=== PATIENT | female | born 1935 | race Caucasian/White ===

== ENCOUNTER → 2016-08-21 | Outpatient (CLI) | payer MEDICARE, BC ==
[~2016-08-21] MED LIST: ALDACTONE25 MG PO; ASPIR 8181 MG PO; BACTRIM DS1 TAB PO; CERTAVITE SR-A1 EACH PO; CORDARONE,PACE200 MG PO; COZAAR50 MG PO; DITROPAN5 MG PO; DULCOLAX10 MG R; FLORASTOR250 MG PO; KLOR-CON 1010 MEQ PO; LASIX40 MG PO; LEVAQUIN 250 M250 MG PO; LEVOTHROID (SY25 MCG PO; LOPRESSOR25 MG PO; MILK OF MA400 MG/5 M PO; MIRALAX17 GM PO; MIRAPEX0.25 MG PO; OXYGEN M-15 INH; PERCOCET 5-3251 EACH PO; PROPAFENONE HC225 MG PO; PROTONIX40 MG PO; TYLENOL325 MG PO; VITAMIN D350000 UNIT PO; XARELTO15 MG PO; ZOLOFT25 MG PO; ZYLOPRIM300 MG PO; ZYRTEC10 MG PO
== END | disposition disaster alternative care site (69) ==
LOC: GAMB 10:36
DX: R41.82 Altered mental status, unspecified (principal); I63.9 Cerebral infarction, unspecified; E03.9 Hypothyroidism, unspecified; I10 Essential (primary) hypertension; R11.0 Nausea; R32 Unspecified urinary incontinence; R53.1 Weakness; Z95.0 Presence of cardiac pacemaker
CPT/HCPCS: A0422; A0425; A0427; J2405

== ENCOUNTER → 2016-10-26 | Outpatient (CLI) | payer MEDICARE, BC ==
--- NOTE | ~2016-10-26 | ENPV ---
Vascular Lower Extremities DVT Study Procedure Demographics Patient Name PALOMO BAUMANN Date of Study 10/26/2016 Patient Number [id number] Gender Female Date of 1935 Age 81 Visit Number [id number] Height Accession Number [id number] Weight Room Number BSA BMI Referring Niya Seaman MD Interpreting John Barrera MD Physician Ya Monroe MD Physician Physician Ordering Physician Niya Seaman MD Foot Tender Back Stayer Karan Tapia [facility] Conclusions Summary No evidence of deep vein thrombosis in the right lower extremity. Procedure Type of Study: Veins:Lower Extremities DVT Study, Lower Extremity Right. Indications for Study:Unilateral pain and edema. Additional Indications:Right lower extremity edema Appropriate Use Criteria:9 Patient Status:Routine. Study Location:Vascular Lab. Technical Quality:Adequate visualization. - Preliminary reported to:'s nurse Nuris. Velocities are measured in cm/s ; Diameters are measured in cm Right Lower Extremities DVT Study Measurements Right 2D and Doppler Measurements + + + + +------+------+ + !Location !Visualized!Compressibility!Thrombosis!Signal!Reflux!Reflux ! ! ! ! ! ! ! !(sec) ! + + + + +------+------+ + !GSV Thigh !Yes !Yes !None !Phasic!No ! ! + + + + +------+------+ + !Common !Yes !Yes !None !Phasic!No ! ! !Femoral ! ! ! ! ! ! ! + + + + +------+------+ + !Prox !Yes !Yes !None !Phasic!No ! ! !Femoral ! ! ! ! ! ! ! + + + + +------+------+ + !Mid Femoral!Yes !Yes !None !Phasic!No ! ! + + + + +------+------+ + !Dist !Yes !Yes !None !Phasic!No ! ! !Femoral ! ! ! ! ! ! ! + + + + +------+------+ + !Popliteal !Yes !Yes !None !Phasic!No ! ! + + + + +------+------+ + !Gastroc !Yes !Yes !None ! ! ! ! + + + + +------+------+ + !PTV !Yes !Yes !None ! ! ! ! + + + + +------+------+ + !Peroneal !Yes !Yes !None ! ! ! ! + + + + +------+------+ + Left Lower Extremities DVT Study Measurements Left 2D and Doppler Measurements + + + + +------+------+ + !Location !Visualized!Compressibility!Thrombosis!Signal!Reflux!Reflux ! ! ! ! ! ! ! !(sec) ! + + + + +------+------+ + !Common !Yes !Yes !None !Phasic!Yes ! ! !Femoral ! ! ! ! ! ! ! + + + + +------+------+ + Signature dtt: MARY REYES dtlizzie: 10/26/16 1540 Physician Self Edit
== END ==
LOC: GCAR 15:00
DX: M79.89 Other specified soft tissue disorders (principal)

== ENCOUNTER → 2016-10-26 | Outpatient (CLI) | payer MEDICARE, BC | END | disposition disaster alternative care site (69) | LOC: LCNC 14:52 | DX: E03.9 Hypothyroidism, unspecified (principal) ==

== ENCOUNTER 2016-10-28 06:12 | Observation (INO) | payer MEDICARE, BC ==
[~2016-10-28] VITALS: Ht 152.4 cm; Wt 64.7 kg
--- NOTE | ~2016-10-28 | OR ---
PATIENT'S NAME: PALOMO BAUMANN [facility] AGE: 81 Y [address] ROOM: [place] [id number] LOCATION: [facility] ADMIT DATE: 10/28/2016 OR/Procedure Report DISCHARGE DATE: 10/29/2016 FAMILY PHYSICIAN: SIN CLEVELAND MD ATTENDING PHYSICIAN: BERNADETTE STONE SURGEON: Bernadette Stone MD BINDERY WORKER: None. 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 PROCEDURES PERFORMED: 1. Removal of deep buried hardware from medial aspect of foot and lateral aspect of foot. 2. Osteoplasty of medial longitudinal arch that included the talar head and navicular and medial cuneiform tarsal bones using a sagittal saw. 3. Irrigation and debridement of stage IV pressure ulcer at medial longitudinal arch. Debridement included skin, subcutaneous tissue, muscle, and fascia down to bone and exposed orthopedic hardware. Pressure sore measuring 5 cm x 5 cm x 4 cm in depth. 4. Use of intraoperative fluoroscopy, less than one hour. ANESTHESIA: Ankle block. FLUIDS: See anesthesia report. ESTIMATED BLOOD LOSS: Minimal. TOURNIQUET: Right ankle at 250 mmHg. SPECIMENS: Removed hardware from hindfoot and midfoot. COMPLICATIONS: None. DISPOSITION: Stable, in PACU. COUNTS: All counts were correct. INDICATIONS: Mrs. Baumann is a pleasant, 81-year-old female who underwent PATIENT'S NAME: PALOMO BAUMANN [facility] AGE: 81 Y [address] ROOM: [address] [address] LOCATION: [facility] ADMIT DATE: 10/28/2016 OR/Procedure Report DISCHARGE DATE: 10/29/2016 FAMILY PHYSICIAN: SIN CLEVELAND MD ATTENDING PHYSICIAN: BERNADETTE STONE the noted procedures above. The risks, benefits, and alternatives to pursuing surgical intervention were discussed with the patient in detail. I marked the patient's right lower extremity, indicating the correct surgical site. Anesthesia was consulted for their perioperative evaluation of the patient. OPERATIVE REPORT IN DETAIL: The patient was brought from the holding area to the operating room. A time-out was performed. Anesthesia was administered. An ankle block had been placed. The right lower extremity was then prepped and draped in the sterile fashion. I turned my attention to the medial aspect of the foot. There was a full- thickness stage IV ulcer communicating with bone and hardware. I made a surgical incision with a 15 blade knife where a previous incision was made for a medial approach to the foot. The incision was carried through skin and subcutaneous tissue down to the buried hardware. I subsequently removed the hardware. I then turned my attention to the ulcer and debrided this full- thickness ulcer using a 15 blade knife, rongeur, and curettes. The wound was then copiously irrigated with a normal sterile saline solution. I used an oscillating saw to perform an osteotomy of the plantar portion of the talar head, navicular bone, and medial cuneiform where the arch had subsequently collapsed leading to the bone and hardware creating the pressure sore at the medial aspect of the foot. The wound was then closed in layers. I then turned my attention to the lateral aspect of the hindfoot. Using previously made surgical incision to address the calcaneocuboid joint, the incision was carried through skin, subcutaneous tissue, muscle, and fascia, down to bone and hardware. I removed the hardware. A piece of the hardware was broken. The wound was then copiously irrigated with a normal sterile saline solution and closed in layers. I introduced intraoperative fluoroscopy and identified that I successfully removed the hardware and had performed a successful osteoplasty of the medial longitudinal arch. Sterile dressing was placed in the form of Xeroform, 4x4, Webril, and Tez bandage. The tourniquet was let down. The patient was then transferred from the operating room table onto the stretcher and brought to the recovery room in stable condition. There were no intraoperative complications noted. IMPRESSION: The patient is status post the noted procedures above. PATIENT'S NAME: PALOMO BAUMANN [facility] AGE: 81 Y [address] ROOM: [place] [address] LOCATION: [facility] ADMIT DATE: 10/28/2016 OR/Procedure Report DISCHARGE DATE: 10/29/2016 FAMILY PHYSICIAN: SIN CLEVELAND MD ATTENDING PHYSICIAN: BERNADETTE STONE PLAN: The patient will be nonweightbearing on the right lower extremity in a soft dressing. She will be encouraged to rest, ice, and elevate it. She is at high risk for bleeding complications seeing that she is currently chronically anticoagulated on Xarelto. She will be discharged home from the PACU provided she meets PACU discharge criteria. She will follow up in my office in 2 weeks for her first postoperative visit. I will continue to monitor closely in the postoperative period. MD KRISTINE ONTIVEROSD/modl /[id number] Corrected work type 11/01/16 AO d: 10/28/16 1455 t: 11/03/16 1258, OPERATIVE SUMMARY
[~2016-10-28 06:12] MED LIST changes: -BACTRIM DS1 TAB PO; -DULCOLAX10 MG R; -FLORASTOR250 MG PO; -LEVAQUIN 250 M250 MG PO; -PERCOCET 5-3251 EACH PO
[2016-10-28 06:54] LABS: BASOPHIL # 0.1 K/uL (0.0-0.2); BASOPHIL % 0.9 %; EOSINOPHIL # 0.1 K/uL (0.0-0.5); EOSINOPHIL % 2.5 %; HEMATOCRIT 35.3 % (30.0-46.0); HEMOGLOBIN 11.4 g/dL (10.0-15.0); IMMATURE GRANULOCYTE % 0.4 %; LYMPHOCYTE # 0.8 K/uL (0.8-4.0); MCH 32.2 pg (27.0-34.0); MCHC 32.3 gm/dL (32.0-36.5); MCV 99.7 fl (83.0-98.0); MONOCYTE # 0.4 K/uL (0.0-1.0); MONOCYTE % 7.7 %; MPV 10.4 fl (9.4-12.4); NEUTROPHIL # (ANC) 4.1 K/uL (1.8-7.8); NEUTROPHIL % 73.5 %; NRBC % 0 /100WBC (0-0.00); PLATELET COUNT 246 K/uL (150-450); RBC 3.54 M/uL (3.00-5.00); RDW-CV 13.9 % (11.9-14.6); WBC 5.6 K/uL (4.0-11.0)
[2016-10-28] MEDS ORDERED: PERCOCET 5-3251 EACH PO (09:54)
[2016-10-28] MEDS ORDERED: BACTRIM DS1 TAB PO (09:55)
[2016-10-28 12:34] LABS: BASOPHIL % 0.6 %; EOSINOPHIL # 0.1 K/uL (0.0-0.5); EOSINOPHIL % 1.9 %; HEMATOCRIT 34.1 % (30.0-46.0); HEMOGLOBIN 10.9 g/dL (10.0-15.0); IMMATURE GRANULOCYTE % 0.4 %; LYMPHOCYTE # 0.7 K/uL (0.8-4.0); LYMPHOCYTE % 15.6 %; MCH 32.5 pg (27.0-34.0); MCV 101.8 fl (83.0-98.0); MONOCYTE # 0.4 K/uL (0.0-1.0); MONOCYTE % 9.1 %; MPV 10.6 fl (9.4-12.4); NEUTROPHIL # (ANC) 3.4 K/uL (1.8-7.8); NEUTROPHIL % 72.4 %; NRBC % 0 /100WBC (0-0.00); PLATELET COUNT 227 K/uL (150-450); RBC 3.35 M/uL (3.00-5.00); RDW-CV 14.1 % (11.9-14.6); WBC 4.6 K/uL (4.0-11.0)
[2016-10-28 12:47] LABS: ANION GAP 8.4 (10.0-19.0); CALCIUM 8.1 mg/dL (8.5-10.5); CREATININE 1.3 mg/dL (0.5-1.1); POTASSIUM 3.4 mMol/L (3.7-5.1)
[2016-10-28 16:54] LABS: HEMATOCRIT 34.5 % (30.0-46.0)
[2016-10-28 17:06] LABS: ANION GAP 9.9 (10.0-19.0); CALCIUM 8.1 mg/dL (8.5-10.5); CREATININE 1.3 mg/dL (0.5-1.1); POTASSIUM 3.9 mMol/L (3.7-5.1)
--- NOTE | 2016-10-28 17:28 | NUR ---
Significant Event: From outpatient recovery at 1145. Hypotensive upon arrival, Fluid bolus given. IV infusing at 125mL/hr to L) hand. Dressing to R) foot C/D/I. Monitor for increased bleeding as patient was not off Xarelto prior to OR. NWB to R) foot. Able to wiggle toes, denies numbness/tingling. Percocet 1 tab at 1537. Follow up:
[2016-10-28 21:01] LABS: HEMATOCRIT 33.7 % (30.0-46.0); HEMOGLOBIN 10.8 g/dL (10.0-15.0)
--- NOTE | 2016-10-29 04:44 | NUR ---
Significant Event: Alert/oriented x3. Came from Outpatient Recovery yesterday at 1145, pt had not stopped her Xarelto when she was supposed to. H & H yesterday at 1650 was 11.0/34.5, at 2000 was 10.8/33.7 - called results into Dr Romo - ordered another H & H for this morning. VSS. CSM - Neurovascular checks Q2H x 24 hrs - can wiggle toes, sensation present, skin warm. Check operative site Q1H for possible bleeding - dressing C/D/I throughout shift. Order for 3 LPM O2 while sleeping. 1 void using bedside commode - 350 mls yellow urine. NWB right lower extremity. Ice bag applied. Foot pump on left foot. Pain tolerable, has not wanted any pain meds. Follow up:
--- NOTE | 2016-10-29 05:03 | NUR ---
Hematest stools order. Pt has hx C diff.
[2016-10-29 05:59] LABS: BASOPHIL % 0.5 %; EOSINOPHIL # 0.1 K/uL (0.0-0.5); EOSINOPHIL % 0.9 %; HEMATOCRIT 31.3 % (30.0-46.0); HEMOGLOBIN 9.9 g/dL (10.0-15.0); IMMATURE GRANULOCYTE % 0.3 %; LYMPHOCYTE # 0.8 K/uL (0.8-4.0); MCH 32.1 pg (27.0-34.0); MCHC 31.6 gm/dL (32.0-36.5); MCV 101.6 fl (83.0-98.0); MONOCYTE # 0.5 K/uL (0.0-1.0); MONOCYTE % 7.3 %; MPV 10.7 fl (9.4-12.4); NRBC % 0 /100WBC (0-0.00); PLATELET COUNT 240 K/uL (150-450); RBC 3.08 M/uL (3.00-5.00); RDW-CV 14.1 % (11.9-14.6); WBC 6.3 K/uL (4.0-11.0)
[2016-10-29 06:13] LABS: ANION GAP 8.8 (10.0-19.0); CALCIUM 8.4 mg/dL (8.5-10.5); CREATININE 1.1 mg/dL (0.5-1.1); POTASSIUM 4.8 mMol/L (3.7-5.1)
--- NOTE | 2016-10-29 10:30 | NUR ---
Introduced self/role to patient, her significant other Julio and daughter Елена #[phone]. Explained their hospital status and that Medicare would not pay for SNF care. Goal is back to [facility] if possible otherwise anywhere but [place]. 1040 Spoke to Smitha at [facility] #[phone]. They can provide extra care for patient ontop of [facility]. Faxed referral to [facility]. 1100 Spoke to [facility]ry [facility] about discharge plans. 1110 Spoke with Olga Lidia at [facility]. 1150 Followed up with Елена, she asked me to call [facility] for pricing on wheelchair and commode. Also to talk to therapies about how she is doing. 1155 Left a message for therapies to call me. [facility] - wheelchair is $60 a month and commode to purchase is $80. 1240 Spoke to Kimberly in PT. Not idea to go to [facility] but will have same barriers at SNF - having to wait for assistance to bathroom and her forgetting she is NWB. Okay with [facility] with the added services we are putting in place. 1245 Left a message for daughter - private care providers list in mom's room, can she transport, cost of items at [facility] and what therapies thought. 1310 Confirmed with Olga Lidia they were good to accept - [facility]. Yes. 1625 Followed up with patient, SO, daughter. Okay for going home today. Called Garry Cobian to proceed. Nursing will fax orders, meds and face to face to [facility] - numbers on the chart.
[2016-10-29] MEDS ORDERED: FLORASTOR250 MG PO (15:08)
--- NOTE | 2016-10-29 15:08 | NUR ---
Significant Event: Pt Aox3, confused at times. IV dc'd. Dressing C/D/I. NWB R) LE. Voiding without difficulty. No BM today, last BM 10/28/16. Pain controlled with Percocet x 1, will give Tylenol prior to transfer. Up with one assist, walker and gait belt. Taking PO fair. Uses IS as instructed with encouragement. Last BM was yesterday. Encouraged daughter to get a standard walker versus her wheeled walker. Plans to return to [facility] per daughter and . Follow up:
[2016-10-29] MEDS ORDERED: PERCOCET 5-3251 EACH PO (15:10)
[2016-10-29] MEDS ORDERED: BACTRIM DS1 TAB PO (15:11)
== END 2016-10-29 17:38 | disposition home health service (06) ==
LOC: G3N 06:12 → GSDC 06:12 → G3N 06:13 → GSDC 06:13 → GPOC 17:00 → G3N 10-29 17:38
PROVIDERS: Internal Medicine; ADMIT Orthopaedic Surgery Adult Reconstructive Orthopaedic Surgery
PROC: 0YP90YZ Removal of Other Device from Right Lower Extremity, Open Approach (ICD-10-PCS; principal; 2016-10-28)
PROC: 0QBL0ZZ Excision of Right Tarsal, Open Approach (ICD-10-PCS; 2016-10-28)
PROC: 0QBL0ZZ Excision of Right Tarsal, Open Approach (ICD-10-PCS; 2016-10-28)
DX: T84.59XA Infection and inflammatory reaction due to other internal joint prosthesis, initial encounter (principal); L89.894 Pressure ulcer of other site, stage 4; L03.115 Cellulitis of right lower limb; M19.071 Primary osteoarthritis, right ankle and foot; I48.91 Unspecified atrial fibrillation; I27.81 Cor pulmonale (chronic); F32.9 Major depressive disorder, single episode, unspecified; I42.0 Dilated cardiomyopathy; K21.9 Gastro-esophageal reflux disease without esophagitis; E03.9 Hypothyroidism, unspecified; G47.33 Obstructive sleep apnea (adult) (pediatric); M81.0 Age-related osteoporosis without current pathological fracture; I25.10 Atherosclerotic heart disease of native coronary artery without angina pectoris; E78.5 Hyperlipidemia, unspecified; I13.0 Hypertensive heart and chronic kidney disease with heart failure and stage 1 through stage 4 chronic kidney disease, or unspecified chronic kidney disease; N18.3 Chronic kidney disease, stage 3 (moderate); I50.9 Heart failure, unspecified; I25.2 Old myocardial infarction; Z90.710 Acquired absence of both cervix and uterus; Z98.890 Other specified postprocedural states; Z79.899 Other long term (current) drug therapy; Z88.8 Allergy status to other drugs, medicaments and biological substances
CPT/HCPCS: G0378; G8978; G8979; G8980; G8984; G8985; G8986; J0690; J2001; J3480; J7030; J7042; J7050

== ENCOUNTER → 2016-11-05 | Outpatient (CLI) | payer MEDICARE, BC ==
[~2016-11-05] MED LIST changes: +BACTRIM DS1 TAB PO; +DULCOLAX10 MG R; +FLORASTOR250 MG PO; +LEVAQUIN 250 M250 MG PO; +PERCOCET 5-3251 EACH PO
== END | disposition disaster alternative care site (69) ==
LOC: GAMB 20:16
DX: M25.0 Hemarthrosis (principal); I10 Essential (primary) hypertension; E03.9 Hypothyroidism, unspecified; Z95.0 Presence of cardiac pacemaker; Z79.899 Other long term (current) drug therapy
CPT/HCPCS: A0425; A0429

== ENCOUNTER → 2016-11-20 | Outpatient (CLI) | payer MEDICARE, BC | END | disposition disaster alternative care site (69) | LOC: GAMB 21:06 | DX: L76.22 Postprocedural hemorrhage of skin and subcutaneous tissue following other procedure (principal); I10 Essential (primary) hypertension; E03.9 Hypothyroidism, unspecified; Z79.899 Other long term (current) drug therapy | CPT/HCPCS: A0425; A0429 ==

== ENCOUNTER 2016-11-21 03:42 | Inpatient (IN) | payer MEDICARE, BC ==
[~2016-11-21] VITALS: Ht 152.4 cm; Wt 62.1 kg
--- NOTE | ~2016-11-21 | ER ---
PATIENT'S NAME: PALOMO BAUMANN [facility] AGE: 81 Y [address] ROOM: [place] [address] LOCATION: [facility] ADMIT DATE: 11/21/2016 ER/Outpatient Report DISCHARGE DATE: FAMILY PHYSICIAN: SIN CLEVELAND MD ATTENDING PHYSICIAN: Wilmer Romo Time of Arrival: 0342. Time of Evaluation: 347. CHIEF COMPLAINT: Right foot wound. HISTORY OF PRESENT ILLNESS: The patient is an 81-year-old female who presents to the emergency department today with chief complaint of a right foot wound. She has been seen at [facility] Emergency Department tonight, was sent over here for further evaluation, treatment, and management. The patient underwent surgery by Dr. Salas. Apparently, the wound had opened up and was draining. They were transferred over here for Dr. Salas's evaluation. The patient herself denies any nausea or vomiting. No fevers or chills. No diarrhea or constipation. Denies any chest pain. No shortness of breath. PAST MEDICAL HISTORY: Sick sinus syndrome, gastroesophageal reflux disease, gout, atrial fibrillation, chronic kidney disease, hypertension, hypothyroid, restless legs syndrome, depression. PAST SURGICAL HISTORY: Pacemaker, right foot surgery, back surgery, cardiac cath, ablation, tonsillectomy, hysterectomy. SOCIAL HISTORY: The patient denies any tobacco, alcohol, or illicit drug use. ALLERGIES: BACTRIM, HEPARIN, RED DYE, SYNTHROID. MEDICATIONS: Please see list. PRIMARY CARE DOCTOR: Dr. [place]. ORTHOPEDIC SURGEON: Dr. Salas. PATIENT'S NAME: PALOMO BAUMANN [facility] AGE: 81 Y [address] ROOM: [place] [address] LOCATION: [facility] ADMIT DATE: 11/21/2016 ER/Outpatient Report DISCHARGE DATE: FAMILY PHYSICIAN: SIN CLEVELAND MD ATTENDING PHYSICIAN: Wilmer Romo REVIEW OF SYSTEMS: All systems are reviewed by myself and negative with the exception of those discussed in HPI and past medical history. PHYSICAL EXAMINATION: VITAL SIGNS: Weight 61.5 kg. Blood pressure 115/59, pulse 60, respiratory rate 16, temperature 97, oxygen saturation 94% on room air. GENERAL: The patient is an 81-year-old female, who appears stated age, in no acute distress. HEENT: Normocephalic, atraumatic. NECK: Supple. There is no nuchal rigidity. CARDIOVASCULAR: Regular rate and rhythm. LUNGS: Clear to auscultation bilaterally. ABDOMEN: Soft, nontender, nondistended. MUSCULOSKELETAL: The patient moves all 4 extremities. SKIN: The patient has a bandage over her right wound. There is no obvious drainage noted. There is no red streaking. LABS AND X-RAYS: ESR is 54. CRP is 1.45. A gram stain and wound culture from 11/14 are obtained. It does show Staph aureus as well as Pseudomonas aeruginosa. IMPRESSION: 1. Wound dehiscence. 2. Initial visit. EMERGENCY DEPARTMENT COURSE: The patient brought back to the examination room. Seen and evaluated by myself. Dr. Salas has seen and evaluated the patient here in the emergency department. We will admit the patient in conjunction with the hospitalist Service. Please see Dr. Salas's dictation. DISPOSITION: The patient is admitted under the care of the Hospitalist Service in stable condition. DO MIR VALLE/real PATIENT'S NAME: PALOMO BAUMANN [facility] AGE: 81 Y [address] ROOM: [place] [address] LOCATION: [facility] ADMIT DATE: 11/21/2016 ER/Outpatient Report DISCHARGE DATE: FAMILY PHYSICIAN: SIN CLEVELAND MD ATTENDING PHYSICIAN: Wilmer Romo /[id number] d: 11/22/16 0049 t: 11/22/161902, OUTPATIENT REPORT
--- NOTE | ~2016-11-21 | DS ---
PATIENT'S NAME: [facility] AGE: 81 Y [address] ROOM: [place] [address] LOCATION: [facility] ADMIT DATE: 11/21/2016 Discharge Summary DISCHARGE DATE: 11/29/2016 FAMILY PHYSICIAN: Fer Pandya MD ATTENDING PHYSICIAN: Wilmer Romo DISCHARGE DIAGNOSES: 1. Delirium. 2. Hypothyroidism. 3. Paroxysmal atrial fibrillation and sinus syndrome, status post pacer. 4. Cor pulmonale, chronic. 5. Chronic kidney disease, stage 3. 6. Anemia of chronic disease. 7. Obstructive sleep apnea. 8. Gastroesophageal reflux disease. REASON FOR ADMISSION: Delirium. She actually was in part admitted because of a wound dehiscence, status post orthopedic procedure. Dr. Salas consulted and noted a right foot wound with a polymicrobial infection, staph aureus and Pseudomonas, suspicious for osteomyelitis. LABORATORY: Initial white count was 6.8, dropped to 3.9. Initial hemoglobin 10.9, she left at 9.3. Pre-albumin was low. CRP was elevated. Initial electrolytes showed sodium 140 and potassium 3.1. These corrected to 143 and 3.7. Vitamin D levels were low. RADIOLOGY: Chest x-ray showed no vascular congestion or acute infiltrate, did have cardiac enlargement with the pacemaker in place. HOSPITAL COURSE: Since that was one of gradual improvement, she was transferred to [facility] for followup care with Dr. Pandya and Dr. Salas. MEDICATIONS: Per med recon. ACTIVITY: Would be per PT and Orthopedics. DIET: To be regular. FOLLOWUP: With Dr. Salas in 2 weeks. PATIENT'S NAME: [facility] AGE: 81 Y [address] ROOM: [place] [address] LOCATION: [facility] ADMIT DATE: 11/21/2016 Discharge Summary DISCHARGE DATE: 11/29/2016 FAMILY PHYSICIAN: Fer Pandya MD ATTENDING PHYSICIAN: Wilmer Romo MD CCJ/modl /[id number] d: 12/17/16 0221 t: 12/18/16 1726, DISCHARGE SUMMARY
--- NOTE | ~2016-11-21 | CON ---
PATIENT'S NAME: PALOMO BAUMANN [facility] AGE: 81 Y [address] ROOM: [id number] [place], [place] [address] LOCATION: G3N ADMIT DATE: 11/21/2016 Consultation DISCHARGE DATE: FAMILY PHYSICIAN: SIN CLEVELAND MD ATTENDING PHYSICIAN: Wilmer Romo REFERRING PHYSICIAN: BERNADETTE STONE MD HISTORY OF PRESENT ILLNESS: Ms. Baumann is an 81-year-old female, who is under the care of my partner, (Dr. 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 She underwent a failed hindfoot arthrodesis (surgery performed last year). She underwent partial hardware removal with Dr. Stone last month. She experienced a partial wound dehiscence earlier this month, and Dr. Stone closed the wound dehiscence on November 05. She was subsequently discharged home with strict instructions to avoid weightbearing. The patient's home health nurse called me one week ago with concerns regarding erythema and increased swelling at the hind foot. I was informed that the ipsilateral knee was asymptomatic, but concern was raised regarding potential proximally migrating erythema and swelling. I made arrangements (through the home health nurse) to have the patient to come to [facility] to be evaluated promptly (due to the fact that it was the weekend). I subsequently received a call (later that same morning) through the answering service. The answering service informed me that the patient's daughter wanted to take her to [facility] instead of [facility] due to the fact that the patient's daughter works at [facility]. I emphasized that this was not appropriate and that the patient needed to be brought to the [facility] due to the fact that Dr. Stone did not have privileges at [facility] and that the patient needed to be under the care of Dr. Stone. The patient's daughter had the patient brought to the [facility] Emergency Room despite these instructions to the contrary. I informed Dr. Stone, that I was concerned that the patient had not followed my instructions, and he informed me that he would ensure further instructions to follow up with him promptly. I am director of instructional technology for our group once again this weekend, and I received a call from the [facility] in early hours this morning, informed me that the patient had been seen there on 2 separate occasions in the last 12 hours with active hemorrhage from her foot. I learned this evening that the patient had been admitted to [facility] 1 week ago (when she presented there, instead of coming here as instructed). She was not evaluated by an orthopedic surgeon. She was admitted to the Hospitalist Service at [facility]. Cultures of her wound grew Pseudomonas and Staphylococcus aureus. She was PATIENT'S NAME: PALOMO BAUMANN [facility] AGE: 81 Y [address] ROOM: [address] [address] LOCATION: [facility] ADMIT DATE: 11/21/2016 Consultation DISCHARGE DATE: FAMILY PHYSICIAN: SIN CLEVELAND MD ATTENDING PHYSICIAN: Wilmer Romo treated with intravenous antibiotics and discharged to [facility] to ensure compliance with weightbearing restrictions. She states that she was aware that she was to be a "strict 2 person assist" for transfers. I have been informed this evening that [facility] was the only intermediate they would accept due to her history of C. difficile colitis. She was transferred from [facility] to [facility] on (4 days ago). She has had a low-grade fever over the past few days. She denies chills. She states that she has been experiencing minimal discomfort and no trend of increased discomfort over the past several days. She states that there has been daily drainage from her right foot wound over the past several days. She states that this has been "not just a little, there was a lot." Based upon her description, there was approximately a 5 centimeter diameter sanguinous stain on her dressing, each of the past several days at [facility]. The patient states that she put weight on her foot while changing her clothes, preparing for bed at 9:00 p.m. at [facility] this evening. She states that her nurse informed her that "it was okay to put a little weight on it." The patient states that she was transferred to [facility] to ensure compliance with the weightbearing restrictions that had been recommended. She states that she has been on oral antibiotics since being transferred to [facility] from [facility]. She states that she was aware that she was not supposed to bear weight, but she did so anyway. A sudden "gush" of "blood" was noted when she put weight on the foot, and she was sent to the [facility] ER by ambulance. The patient states that she is uncertain why [facility] had her go to [facility] this evening. I had the emergency room staff call [facility], and [facility] informed the [facility] staff that the patient had insisted on going only to [facility]. The [facility] Emergency Room physician saw her on 2 occasions this evening. He called me after she returned a second time. He informs me that he noted a wound dehiscence when she presented the first time. He states that there was "bloody drainage." He sutured the wound closed and sent the patient back to [facility]. The patient and her family members state that the wound started to actively bleed before getting out of the car upon her return to [facility]. They, therefore, returned to the [facility] Emergency Room with the emergency room physician placing an additional suture. The patient states, "one of the stitches had popped." The emergency room physician at [facility] called me through my answering service after the patient presented a second time. I expressed my concern regarding the patient and her family members having failed to comply with my recommendation to come to this facility one week ago. I encouraged the emergency room physician to transfer her here (so that she PATIENT'S NAME: PALOMO BAUMANN [facility] AGE: 81 Y [address] ROOM: [id number] [place] [id number] LOCATION: [facility] ADMIT DATE: 11/21/2016 Consultation DISCHARGE DATE: FAMILY PHYSICIAN: SIN CLEVELAND MD ATTENDING PHYSICIAN: Wilmer Romo could have appropriate follow up with Dr. Stone). The patient and her family members were amenable to this. I asked that he check with them (before transferring her) to be certain that they were comfortable with us, due to my concern that there might have been some underlying reason why they elected to go to another facility on 3 separate occasions during the past week despite the fact that they were aware that the patient's primary care physician (Dr. Cleveland) and the patient's surgeon (Dr. Stone) did not have privileges at [facility]. The emergency room physician reassured me that the patient and her family members did not object to transferring her here before transferring her. The patient states that she is having minimal discomfort. MEDICATIONS: Present medications: 1. Ultram. 2. Tylenol. 3. Allopurinol. 4. Cetirizine. 5. Dulcolax. 6. Furosemide. 7. Lactobacillus. 8. Levaquin. 9. Losartan. 10. Metoprolol. 11. Milk of magnesia. 12. Oxybutynin ER. 13. Pantoprazole. 14. Xarelto. 15. Synthroid. 16. Sertraline. 17. Pramipexole. ACTIVE MEDICAL PROBLEMS: COPD, atrial fibrillation, peripheral vascular disease, coronary artery disease, hypertension, hypothyroidism, history of gout, history of sleep apnea, history of C. difficile colitis. PHYSICAL EXAMINATION: GENERAL: The patient is alert and oriented. She is accompanied by her daughter and her . She is in no distress. EXTREMITIES: There is a severe pes planovalgus deformity of the right hindfoot. The bandage from her right foot is removed. There was a medial- sided plantar-medial mid foot wound with multiple sutures. There is no active hemorrhage. There is no fluctuance or erythema. I replaced the sterile 4 x 4 PATIENT'S NAME: PALOMO BAUMANN [facility] AGE: 81 Y [address] ROOM: [id number] [place], [place] [address] LOCATION: [facility] ADMIT DATE: 11/21/2016 Consultation DISCHARGE DATE: FAMILY PHYSICIAN: SIN CLEVELAND MD ATTENDING PHYSICIAN: Wilmer Romo gauzpb dressing and reapplied an Tez wrap. There was no skin necrosis or malodor. There is good capillary refill and sensation to light touch to all toes of the right foot. There is no right calf swelling or tenderness. There is no erythema at the right ankle or calf. There is a well-healed longitudinal midline scar at the right knee. There is no swelling, tenderness, or erythema at the right knee. RADIOGRAPHS: I have reviewed radiographs of the right foot and ankle from last week. These demonstrate a plate and screws at the medial aspect of the Lisfranc joint. In addition, there is a screw extending through the calcaneal tuberosity into the cuboid region. There appears to have been valgus collapse across the mid foot. There is no subcutaneous air. I have reviewed the [facility] discharge note narrative, pertaining to her November 14 admission. This indicates that her wound culture from November 14, "grew out Staph aureus and Pseudomonas aeruginosa both sensitive to Levaquin." Her C-reactive protein level on admission was 7.46. She had a bone scan on November 17, which demonstrated, "intense uptake in the right ankle." I have reviewed Dr. Stone' operative note from October 28, 2016: "Removal of deep buried hardware from medial aspect of foot and lateral aspect of foot. Osteoplasty of medial longitudinal arch. Irrigation and debridement of stage IV pressure ulcer at medial longitudinal arch." I have reviewed Dr. Stone' operative note from March 05, 2015: "Right hindfoot triple arthrodesis. Revision of gastrocnemius recession, correction of third and fourth and fifth hammertoes. Peroneus longus and brevis tendon lengthening, flexor hallucis longus tenolysis, great toe. Flexor digitorum longus tendon transfer. Flexor digitorum longus tenolysis to third, fourth, and fifth toes." I have reviewed the patient's [facility] Emergency Room progress note from November 21, (12:43 a.m.). I have reviewed the patient's [facility] admission history and physical narrative from November 14, 2016. I have reviewed the patient's [facility] Emergency Room progress note narrative from November 21 (3:43 a.m.). Laboratory data from this evening: Erythrocyte sedimentation rate 54 (markedly elevated). C-reactive protein level 1.45 (moderately elevated). IMPRESSION: 1. Severe right hindfoot pes planovalgus deformity. 2. History of associated medial plantar pressure ulcer. PATIENT'S NAME: PALOMO BAUMANN [facility] AGE: 81 Y [address] ROOM: [place] [address] LOCATION: [facility] ADMIT DATE: 11/21/2016 Consultation DISCHARGE DATE: FAMILY PHYSICIAN: SIN CLEVELAND MD ATTENDING PHYSICIAN: Wilmer Romo 3. History of debridement thereof and limited hardware removal with 3 separate postoperative wound dehiscence's associated with noncompliance with weightbearing restrictions. 4. Infected right foot wound (polymicrobial infection, including Staphylococcus aureus and Pseudomonas). Suspect deep infection (bone scan suggests potential osteomyelitis). No evidence of spread of infection to ipsilateral well-functioning total knee arthroplasty. RECOMMENDATIONS: I have informed the patient and her family members that it is imperative that she complies strictly with her weightbearing restrictions or she will, undoubtedly, experience a fourth wound dehiscence. They adamantly refused to return to [facility]. Therefore, she needs to be admitted for her safety and well-being. Returning home is unacceptably unsafe. There is no possible way that she will comply with weightbearing restrictions at home if she has been unable to do so, at a intermediate. I have emphasized the gravity of this situation. I have informed the patient and her family members that it would be reasonable to consider the option of a below-knee amputation. I have informed him that the state of the hind foot is a threat to not only her limb and ipsilateral knee replacement but also to her life. Specifically, an uncontrolled infection could become a source of septicemia. They informed me that Dr. Stone has already brought up the option of considering a below-knee amputation. I have asked the patient to give further thought to this prior to further discussions with Dr. Stone tomorrow regarding treatment options. In the meantime, the patient will be admitted to the hospitalist service. We will continue the oral antibiotics on which she had been discharged from [facility] a few days ago. She demonstrates no active signs of septicemia. Strict nonweightbearing. I have discussed the situation directly with Dr. Tapia from the hospitalist service. MD SANTINO BRIONES/real PATIENT'S NAME: PALOMO BAUMANN [facility] AGE: 81 Y [address] ROOM: [address] [address] LOCATION: [facility] ADMIT DATE: 11/21/2016 Consultation DISCHARGE DATE: FAMILY PHYSICIAN: SIN CLEVELAND MD ATTENDING PHYSICIAN: Wilmer Romo /[id number] d: 11/21/16 1021 t: 11/22/16 0926, CONSULTATION REPORT
--- NOTE | ~2016-11-21 | HP ---
PATIENT'S NAME: PALOMO BAUMANN [facility] AGE: 81 Y [address] ROOM: [id number] [place], [place] [address] LOCATION: G3N ADMIT DATE: 11/21/2016 History & Physical DISCHARGE DATE: FAMILY PHYSICIAN: SIN CLEVELAND MD ATTENDING PHYSICIAN: Wilmer Romo DATE OF SERVICE: CHIEF COMPLAINT: Wound dehiscence and progressive confusion. HISTORY OF PRESENTING ILLNESS: This 81-year-old white female with previous history of paroxysmal atrial fibrillation, on long-term anticoagulation with warfarin, obstructive sleep apnea, and cor pulmonale, was brought to [facility] last evening after a series of visits to [facility] and at the request of the Orthopedics Service. Apparently, the patient had been hospitalized at [facility] several weeks ago with a febrile illness. I do not have any records of that interaction, however, she believes that she was treated for pneumonia. There was some concern for wound infection at that time. She was treated with antibiotic therapy and ultimately discharged to [facility]. At some point, she returned to the Emergency Department at [facility], at least once and was seen and evaluated for the foot wound there. She had been instructed for nonweightbearing status, but apparently not compliant with that. Yesterday, she was seen for the wound and had some re-suturing performed at the emergency room there. She subsequently returned later after linda bleeding developed. At the request of the Orthopedic Service, she was transferred to our emergency room for definitive evaluation and management. Eventually, it was requested that she be admitted to the floor for wound management and medical evaluation. On my evaluation, she was confused. She did seem to have a basic recollection of these events, but could not give me any specific details. She did complain of some pain in the foot, but only with ambulation. She denied headache. Denied dizziness or nausea and did report feeling hungry and very thirsty. She has not had any chest pain. She denies congestion or cough. She denies any abdominal pain. She believes that she has been stooling normally, but cannot recall her last bowel movement. She denies any urinary complaints, no dysuria, frequency, or urgency, and no hematuria. She has not noticed any blood in her stools or black tarry stools. She also denies numbness, tingling, or weakness in her extremities. She does admit to weakness and general gait instability. She ambulates with PATIENT'S NAME: PALOMO BAUMANN [facility] AGE: 81 Y [address] ROOM: [address] [address] LOCATION: [facility] ADMIT DATE: 11/21/2016 History & Physical DISCHARGE DATE: FAMILY PHYSICIAN: SIN CLEVELAND MD ATTENDING PHYSICIAN: Wilmer Romo the help of a walker, but could not recall that she was supposed to be nonweightbearing on the affected foot. She did recollect a fall about 3 weeks ago in which she stumbled while getting out of the car downtown. She denies any residual injury from that. PAST MEDICAL HISTORY: Allergies: Bactrim, heparin, red dye, and Synthroid. Illnesses: 1. Chronic Cor pulmonale. 2. Paroxysmal atrial fibrillation on long-term anticoagulation with Xarelto. 3. Obstructive sleep apnea. 4. Essential hypertension. 5. Osteoarthritis, generalized. 6. Chronic kidney disease, stage 3. 7. Coronary artery disease. 8. Hypothyroidism. 9. Rheumatic heart disease. 10. Sick sinus syndrome, status post permanent pacemaker placement. 11. Gastroesophageal reflux disease. 12. History of C. diff colitis. CURRENT MEDICATIONS: 1. Allopurinol 300 mg p.o. daily. 2. Zyrtec 10 mg p.o. at bedtime. 3. Lasix 40 mg p.o. daily. 4. Levaquin 250 mg p.o. daily starting 11/19/2016. 5. Losartan 50 mg p.o. daily. 6. Oxybutynin ER 5 mg p.o. daily. 7. Sertraline 25 mg p.o. daily. 8. Synthroid 75 mcg p.o. daily. 9. Xarelto 15 mg p.o. daily. 10. Probiotic 1 tablet b.i.d. 11. Metoprolol 25 mg p.o. b.i.d. 12. Protonix 40 mg p.o. b.i.d. 13. Mirapex 0.25 mg p.o. b.i.d. 14. Acetaminophen 650 mg p.o. q.4 hours p.r.n. 15. Dulcolax 10 mg p.o. daily p.r.n. 16. Milk of magnesia 30 mL p.o. daily p.r.n. FAMILY HISTORY: Significant for Alzheimer disease in her mother. Father had cancer and heart disease, but of a stroke. SOCIAL HISTORY: PATIENT'S NAME: PALOMO BAUMANN [facility] AGE: 81 Y [address] ROOM: [facility] [place], [place] [address] LOCATION: [facility] ADMIT DATE: 11/21/2016 History & Physical DISCHARGE DATE: FAMILY PHYSICIAN: SIN CLEVELAND MD ATTENDING PHYSICIAN: Wilmer Romo She is and has lived at [place]. Most recently she has been a resident at [facility]. There is no significant history of tobacco or alcohol use. REVIEW OF SYSTEMS: As per HPI. All other organ systems reviewed and are negative. OBJECTIVE: VITAL SIGNS: Temperature 98, pulse is 60, respirations 14, blood pressure 122/66. Weight is 68.1 kg. GENERAL: She is frail, anxious, not ill appearing, lying in bed, in no acute distress. SKIN: Supple, pale, warm, and dry. No obvious rashes. Wound overlying the right foot is dressed. The dressing is clean, dry, and intact. HEENT: Otherwise, normocephalic. Sclerae nonicteric. Pupils are equal, round, and slow to react to light. Extraocular movements appear intact. Nasal turbinates normal in appearance. Dentition appears intact. NECK: Supple. No masses or adenopathy. No thyromegaly. No JVD. CHEST: Wall is symmetrical. HEART: Regular with a grade 2 to 3/6 systolic ejection murmur. LUNGS: Diminished at the bases. No crackles are heard. No areas of consolidation. No wheezes. ABDOMEN: Soft, protuberant, and nontender. Bowel sounds present. No mass or hepatosplenomegaly. GENITOURINARY: Not done. RECTAL: Not done. EXTREMITIES: Display trace to 1+ pitting edema, right greater than left. There is obvious pes planus deformity at the right foot with the associated dressing in place. NEUROLOGIC: Mentation is slow. She is oriented x2. There are no focal deficits. LABORATORY AND X-RAY DATA: Erythrocyte sedimentation rate was 54. C-reactive protein was 1.45. ASSESSMENT AND PLAN: 1. Confusion, multifactorial. Will need to gather missing information. We will try to glean available records here and obtain records from her recent hospital stay at [facility]. She was treated for an apparent febrile illness there, but the focus is unclear. We will continue with supportive cares and try to eliminate potentially offending medications. I suspect age-related cognitive decline as the main factor here, but cannot exclude the possibility of infection, environmental factors, and medications as possible causes. 2. Wound dehiscence. Keep the dressing in place and observe strict PATIENT'S NAME: PALOMO BAUMANN [facility] AGE: 81 Y [address] ROOM: [address] [place], [place] [address] LOCATION: [facility] ADMIT DATE: 11/21/2016 History & Physical DISCHARGE DATE: FAMILY PHYSICIAN: SIN CLEVELAND MD ATTENDING PHYSICIAN: Wilmer Romo nonweightbearing status. We will await evaluation and recommendations by Dr. Salas tomorrow. 3. Hypothyroidism. It is unclear that corrective measures were taken. We will repeat a TSH and free T4 and make adjustments to her replacement regimen if needed. 4. Paroxysmal atrial fibrillation status post atrioventricular deo ablation. Historically stable and rate controlled. Her long-term anticoagulation will be held in light of the possibility of further orthopedic intervention. 5. Chronic cor pulmonale appears to be adequately compensated. There are no absolute contraindications to proceed with Orthopedic intervention. She is not oxygen requiring at baseline with the exception of nocturnal oxygen. 6. Chronic kidney disease, stage 3. We will repeat chemistries and follow up on those when the results are known. Her volume status appears normal. 7. Recent febrile illness appears resolved. It is unclear what the focus of infection was. Consider pneumonia. We will get procalcitonin and follow up on that when the results are known. In the meantime, we will plan to continue with the antibiotic regimen prescribed. 8. Obstructive sleep apnea. She is intolerant to CPAP. Continue with nocturnal oxygen. Encourage good pulmonary hygiene. 9. Essential hypertension. Currently, appears to be adequately controlled. No changes for now. Monitor. 10. Anemia of chronic kidney disease. We will repeat a hemoglobin today and follow up on that when the results are known given her recent episode of wound dehiscence and associated bleeding. 11. Gait instability, chronic. She is high risk for falls. She is also little impulsive currently and not compliant with nonweightbearing status. We will observe strict fall precautions and probably engage in some physical therapy and occupational therapy. 12. Osteoarthritis, generalized. Symptomatic measures. No nonsteroidal antiinflammatory drugs. We will also try to minimize opioid analgesics in light of her altered mental status. 13. Deep venous thrombosis prophylaxis. We will hold anticoagulants in light of the possibility of orthopedic intervention. Utilize pneumatic compression devices and mobilize as she tolerates. MD ISABELLE LEDBETTER/real PATIENT'S NAME: PALOMO BAUMANN [facility] AGE: 81 Y [address] ROOM: [place] [address] LOCATION: [facility] ADMIT DATE: 11/21/2016 History & Physical DISCHARGE DATE: FAMILY PHYSICIAN: SIN CLEVELAND MD ATTENDING PHYSICIAN: Wilmer Romo /[id number] D: 7 T: HISTORY & PHYSICAL
--- NOTE | ~2016-11-21 | OR ---
PATIENT'S NAME: PALOMO BAUMANN [facility] AGE: 81 Y [address] ROOM: [place] [address] LOCATION: [facility] ADMIT DATE: 11/21/2016 OR/Procedure Report DISCHARGE DATE: FAMILY PHYSICIAN: SIN CLEVELAND MD ATTENDING PHYSICIAN: Wilmer Romo SURGEON: Umer Salas MD SPIRAL BINDER: Mike Salas PA-C. DATE OF PROCEDURE: 11/22/2016 PREOPERATIVE DIAGNOSIS: Right full-thickness wound dehiscence, foot. POSTOPERATIVE DIAGNOSIS: Right full-thickness wound dehiscence, foot. PROCEDURE: Irrigation and debridement of right surgical wound dehiscence. Wound measures 8 cm in length x 2 cm in width x 4 cm in depth. Debridement included skin, subcutaneous tissue, muscle, fascia, and bone. ANESTHESIA: General endotracheal anesthesia. FLUIDS: See Anesthesia report. ESTIMATED BLOOD LOSS: Minimal. TOURNIQUET: Right proximal thigh 250 mmHg. SPECIMEN: None. COMPLICATIONS: None. DISPOSITION: Stable in PACU. COUNTS: All counts correct. INDICATIONS: Ms. Baumann is an 81-year-old female who underwent the noted procedures above. The risks, benefits, and alternatives of pursuing surgical intervention were discussed with the patient and her family in detail. Informed consent was obtained, and they elected to proceed with surgery. Anesthesia was consulted for their perioperative evaluation of the patient. I marked the right lower extremity indicating the correct surgical site. DESCRIPTION OF PROCEDURE: The patient was brought from the holding area to the operating room. A time-out was performed. General endotracheal anesthesia was administered. The patient is currently on Levaquin antibiotic routine. The right lower extremity was then prepped and draped in a sterile fashion. I turned my attention to the right foot. The sutures had been PATIENT'S NAME: PALOMO BAUMANN [facility] AGE: 81 Y [address] ROOM: [place] [address] LOCATION: [facility] ADMIT DATE: 11/21/2016 OR/Procedure Report DISCHARGE DATE: FAMILY PHYSICIAN: SIN CLEVELAND MD ATTENDING PHYSICIAN: Wilmer Romo previously removed from the foot and there was evidence of full-thickness wound dehiscence with serosanguineous drainage. An Esmarch was used to exsanguinate the limb, and the tourniquet was inflated to 250 mmHg. I turned my attention to the medial aspect of the foot. I performed an irrigation and debridement using a 15 blade knife and a series of curettes and a rongeur. I performed debridement of skin, subcutaneous tissue, muscle, fascia down to including bone. Nonviable tissue was removed. A 3 L of normal sterile saline solution via pulsatile lavage were passed through the wound. A pressure ulcer that had been previously present appeared to be resolving. Using an 0 nylon suture, I performed a primary closure of the wound using interrupted horizontal mattress suture to approximate the soft tissues. Sterile dressings were then placed in the form of Xeroform, followed by 4x4, ABD, Webril, and Tez bandage. The patient was then transferred from the operating table onto the stretcher and extubated. She was brought to the recovery room in stable condition. There were no intraoperative complications noted. Of note, my PA, Mike Salas PA-C, played an integral role in the intraoperative care of this patient. This included preoperative positioning, intraoperative expert retraction, and closing and dressing functions. IMPRESSION: The patient is status post the noted procedure above. PLAN: The patient will be strict nonweightbearing on the right lower extremity. She will be instructed to rest, ice, and elevate the foot going forward. The patient will continue with the antibiotics per routine. The hospitalist will continue to manage her concomitant medical comorbidities. DVT prophylaxis and other blood thinners will be held going forward. Physical Therapy and Occupational Therapy will be consulted for early ambulation and prevention of deconditioning. I will continue to monitor the patient closely in the postoperative period. MD LILIANE ONTIVEROS/modl /[id number] d: 11/22/16 2241 t: 11/23/16 1033, OPERATIVE SUMMARY
--- NOTE | ~2016-11-21 | DS ---
PATIENT'S NAME: PALOMO BAUMANN [facility] AGE: 81 Y [address] ROOM: [id number] [place], [place] [address] LOCATION: [facility] ADMIT DATE: 11/21/2016 Discharge Summary DISCHARGE DATE: 11/29/2016 FAMILY PHYSICIAN: Fer Pandya MD ATTENDING PHYSICIAN: Wilmer Romo DISCHARGE DIAGNOSES: 1. Right full-thickness wound dehiscence, status post I and D. 2. Paroxysmal atrial fibrillation. 3. Obstructive sleep apnea, not on CPAP, wears 3 L O2 at night. 4. Hypothyroidism. 5. Chronic cor pulmonale. 6. Anemia of chronic disease. 7. Restless legs syndrome. PROCEDURES PERFORMED: Irrigation and debridement of right surgical wound dehiscence, done on 11/22/[address] Umer Salas. HOSPITAL COURSE: Please refer to admitting history and physical as dictated by Dr. Romo. Briefly, the patient was admitted to [facility] with right foot wound dehiscence and progressive confusion. Her Xarelto was held for possible surgery. Dr. Salas was consulted for her right foot wound dehiscence. It was felt as though her encephalopathy was likely related to metabolic reasons or possibly worsening of her dementia on the first hospitalization morning as she appeared to be almost at baseline. Her heart rate remained stable. Due to her obstructive sleep apnea, oxygen was continued at night. She is intolerant to CPAP. Dr. Salas did see the patient. He recommended that she proceed with an I and D of the right foot, which was performed on 11/22/2016. She was made nonweightbearing to the right foot postoperatively. PT and OT were both consulted for restorative cares. Postoperatively, the patient gradually improved. Due to her difficulty with remaining non-weight bearing, it was recommended that she proceed to a detention facility for further restorative cares. She continued on Levaquin IV which was subsequently changed to p.o. for her right foot wound. Care Management did work with the patient and family on finding the patient a detention facility which was ultimately found at [facility]. The patient's vital signs remained stable. Her dressing was changed by Ortho on the day of discharge. She had no further pain in her right foot. Last taken Percocet on 11/25. Postoperatively, her Xarelto was resumed for her history of paroxysmal atrial fibrillation. Her potassium was replaced for potassium of 3.2 on November 26, which did subsequently come up to 3.7. Her creatinine was stable. On 11/29/2016, the patient's vital signs were stable. It was recommended that she be discharged to detention facility for further restorative cares while she is nonweightbearing. PATIENT'S NAME: PALOMO BAUMANN [facility] AGE: 81 Y [address] ROOM: [id number] [place], [place] [address] LOCATION: [facility] ADMIT DATE: 11/21/2016 Discharge Summary DISCHARGE DATE: 11/29/2016 FAMILY PHYSICIAN: Fer Pandya MD ATTENDING PHYSICIAN: Wilmer Romo LABORATORY DATA: Sodium remained within normal limits; potassium 3.1-3.7; BUN 38 upon admit, 21 prior to discharge; creatinine 1.6 on admit, 1.2 prior to discharge. GFR 30 upon admit, 42 prior to discharge. Mag 2.1. ProBNP 770. T4 of 5, pre-albumin 17, TSH 60.5. WBCs 3.9-6.8, hemoglobin 8.6-10.9, hematocrit 26.9-34.0, platelets 216. ESR 54. Procalcitonin less than 0.05. RADIOLOGY REPORTS: Chest x-ray done on admit showed no vascular congestion or acute infiltrate, cardiac enlargement, pacemaker in place. DISCHARGE INSTRUCTIONS: The patient will be discharged to [facility]. Follow up with Dr. Pandya with a CBC and a BMP in 3 days. Follow up with Dr. Salas in 2 weeks. Diet: Regular. Weightbearing: Nonweightbearing to the right lower extremity with assistance. PT and OT to continue to follow. O2 at 3 L when asleep. Next TSH on 12/14 with free T4. Rehab potential is fair. Discharge potential is fair. Change dressing to right foot every 2-3 days with Xeroform, 4x4 gauze, cast padding, and Tez wrap. DISCHARGE MEDICATIONS: 1. Allopurinol 300 mg p.o. daily. 2. Lasix 40 mg p.o. daily. 3. Levaquin 250 mg daily x7 days, stop after 12/05/2016 dose. 4. Levothyroxine 75 mcg daily. 5. Cozaar 50 mg p.o. daily. Hold if systolic blood pressure is less than 110. 6. Lopressor 25 mg p.o. twice daily. Hold if SBP less than 110 or heart rate less than 60. 7. Protonix 40 mg p.o. twice daily. 8. Mirapex 0.25 mg p.o. twice daily. 9. Xarelto 15 mg p.o. daily. 10. Florastor 250 mg p.o. twice daily. 11. Zoloft 25 mg p.o. daily. 12. Tylenol 650 mg p.o. every 6 hours as needed for pain. 13. Dulcolax suppository 10 mg rectally as needed for constipation. 14. Zyrtec 10 mg p.o. q.h.s. 15. Milk of magnesia 30 mL p.o. as needed for constipation. PATIENT'S NAME: PALOMO BAUMANN [facility] AGE: 81 Y [address] ROOM: [place] [address] LOCATION: [facility] ADMIT DATE: 11/21/2016 Discharge Summary DISCHARGE DATE: 11/29/2016 FAMILY PHYSICIAN: Fer Pandya MD ATTENDING PHYSICIAN: Wilmer Romo 16. Percocet 1 tablet p.o. every 3 hours as needed for pain. 17. Ditropan 5 mg p.o. daily. 18. Oxygen 3 L at bedtime or when asleep. Thank you for allowing us to participate in the care of this patient as she has been hospitalized at [facility] [place]. MICHELE JOE APRN FOR MD AGATHA PIEDRA/rela /[id number] CC: MD Fer Kam MD d: 11/30/16 0153 t: 12/16/16 1659, DISCHARGE SUMMARY
[~2016-11-21 03:42] MED LIST changes: -DULCOLAX10 MG R; -LEVAQUIN 250 M250 MG PO
[2016-11-21 10:32] LABS: BASOPHIL # 0.1 K/uL (0.0-0.2); BASOPHIL % 0.9 %; EOSINOPHIL # 0.1 K/uL (0.0-0.5); EOSINOPHIL % 1.6 %; HEMOGLOBIN 10.9 g/dL (10.0-15.0); IMMATURE GRANULOCYTE # 0.1 K/uL (0.0-0.3); IMMATURE GRANULOCYTE % 0.7 %; LYMPHOCYTE % 14.6 %; MCHC 32.1 gm/dL (32.0-36.5); MCV 99.7 fl (83.0-98.0); MONOCYTE # 0.5 K/uL (0.0-1.0); MONOCYTE % 7.5 %; MPV 11.6 fl (9.4-12.4); NEUTROPHIL # (ANC) 5.1 K/uL (1.8-7.8); NEUTROPHIL % 74.7 %; NRBC % 0 /100WBC (0-0.00); RBC 3.41 M/uL (3.00-5.00); RDW-CV 14.5 % (11.9-14.6); WBC 6.8 K/uL (4.0-11.0)
[2016-11-21 10:37] LABS: PLATELET COUNT 167 K/uL (150-450)
[2016-11-21] MEDS ORDERED: LEVAQUIN 250 M250 MG PO (10:44)
[2016-11-21] MEDS ORDERED: TYLENOL325 MG PO (10:48)
[2016-11-21] MEDS ORDERED: DULCOLAX10 MG R (10:49)
[2016-11-21] MEDS ORDERED: MILK OF MA400 MG/5 M PO (10:49)
[2016-11-21 10:52] LABS: ALBUMIN 3.4 gm/dL (3.5-5.0); ANION GAP 12.1 (10.0-19.0); CALCIUM 8.8 mg/dL (8.5-10.5); CREATININE 1.6 mg/dL (0.5-1.1); MAGNESIUM 1.9 mg/dL (1.8-2.6); PHOSPHORUS 4.2 mg/dL (2.5-4.9); POTASSIUM 3.1 mMol/L (3.7-5.1)
--- NOTE | 2016-11-22 03:33 | NUR ---
Shift Summary: Patient is on bedrest or up with lift due to patient's inability to maintain non-wt bearing status to right foot. She does not complain of any pain. She is forgetful. Has a history of dementia. She has a pacemaker. Tolerating regular diet well. Voiding per bedpan. No drainage to right foot dressing.
--- NOTE | 2016-11-22 11:35 | NUR ---
Introduced self/role to patient. She states she was in independent living but will be returning to [facility] at [facility]. Added my name to patients marker board. 1210 Called [facility] and spoke to Vangie. Yes, the are planning on her coming as a Respite in the assisted side. Placed a note on the chart regarding discharge plans.
--- NOTE | 2016-11-22 17:36 | NUR ---
Significant Event: Pt Aox3 at times, forgetful at times r/t history of dementia. Very pleasant. Right foot dressing C/D/I. STRICT NWB R) LE. Bed alarm on. NPO after 0800 this am for OR this evening. Went to OR around 1530. Follow up:
[2016-11-23 05:54] LABS: BASOPHIL % 0.8 %; EOSINOPHIL # 0.1 K/uL (0.0-0.5); EOSINOPHIL % 2.1 %; HEMOGLOBIN 8.6 g/dL (10.0-15.0); IMMATURE GRANULOCYTE % 0.4 %; LYMPHOCYTE # 0.9 K/uL (0.8-4.0); MCH 31.6 pg (27.0-34.0); MCV 98.9 fl (83.0-98.0); MONOCYTE # 0.4 K/uL (0.0-1.0); MPV 11.1 fl (9.4-12.4); NEUTROPHIL # (ANC) 3.4 K/uL (1.8-7.8); NEUTROPHIL % 69.7 %; NRBC % 0 /100WBC (0-0.00); PLATELET COUNT 153 K/uL (150-450); RBC 2.72 M/uL (3.00-5.00); RDW-CV 14.4 % (11.9-14.6); WBC 4.9 K/uL (4.0-11.0)
[2016-11-23 05:56] LABS: HEMATOCRIT 26.9 % (30.0-46.0)
[2016-11-23 06:05] LABS: ALBUMIN 2.7 gm/dL (3.5-5.0); ANION GAP 11.5 (10.0-19.0); CALCIUM 8.2 mg/dL (8.5-10.5); CREATININE 1.1 mg/dL (0.5-1.1); MAGNESIUM 2.1 mg/dL (1.8-2.6); PHOSPHORUS 3.2 mg/dL (2.5-4.9); POTASSIUM 3.5 mMol/L (3.7-5.1)
--- NOTE | 2016-11-23 07:39 | NUR ---
Significant Event: Arrived to floor from PACU at 1900. Oriented to person time and place, is forgetful, asks repetitive questions and is forgetful to her birthday. HS dose of lopressor held last night. IV SL'd upon arrival from PACU. Had 1 void and 1 bowel movement last night. Dressing to R) foot is CDI. Pt can wiggles toes, toes are warm and pink, unable to assess pulse. Pt did have a block and does not yet have sensation to toes. Percocet given this am for anticipated pain. Pt is strict NWB to RLE. Pt has not yet been up, awaiting help from PT for weight bearing status. Follow up: Joserelto to start POD2, pharmacy would like the order clarified with the dose, not left on chart for MD.
--- NOTE | 2016-11-23 12:15 | NUR ---
Spoke to patient about the need for skilled placement over [facility]. She wanted me to talk to her daughter for preference of where to go. 1225 Left a message for daughter Елена #[phone]. 1325 Елена called back. Come to find out patient was in [facility] and they are holding the bed. Елена also talked about [facility] and will help her mom at a [address] assist[address] I will talk Dr Salas for his opinion. 1440 Aby with [facility] here, was seeing patient at [place]. She recommend SNF placement. [address] Salas, he wants the location that will provide the most supervision. I asked about length of stay? He wants to watch wound for awhile so will look towards Tuesday for discharge. Called and left a message for patients daughter.
--- NOTE | 2016-11-23 16:38 | NUR ---
Significant Event: Pt AOx3, forgetful frequently. Hx of dementia. IV intact. Levaquin IV. Voiding without difficulty, BM this am. Takes Po well. Pain control with Percocet. This afternoon, she has had increased pain. Up with 2 max assist, we ENSURED her foot did not touch the ground. Pivot transfers. Dressing remains C/D/I. Wiggles toes. Denies numbness. Heels elevated. Bed alarm on for safety Follow up:
--- NOTE | 2016-11-24 04:15 | NUR ---
Significant Event: Disoriented to place, unable to state birthday, forgetful. Does have hx dementia. BP slightly hypotensive, last BP was 113/62. Lopressor held at HS per parameters. Pt did get up to bedside commode with 2 assist pivot transfer, gait belt and walker, pt did NOT tolerate well. Strict NWB to RLE. Need to ensure that patients foot does not touch ground at all. Complaints of pain to L) knee with transfer. Urine output of 200 mls this shift, only had 250 ml intake. IV SL'd. Percocet given for pain x1 at 2121. Denies pain when asked rest of night. Dressing to RLE is CDI. Can wiggles toes, they are warm and pale in color. Follow up: Strict NWB RLE. Care Management consulted.
--- NOTE | 2016-11-24 15:45 | NUR ---
Notified Bill at [facility] that patient might return to them Tuesday.
--- NOTE | 2016-11-24 16:49 | NUR ---
Significant Event: Transfers with 2-3 assist and walker. Needs constant reminders to maintain NWB. Percocet 1 tab this am, refused offers since. Dressing changed this am by Mike ESPINO. Elevated at all times. Hx of dementia, Less confusion this afternoon. Follow up:
--- NOTE | 2016-11-25 04:14 | NUR ---
Pt is NWB to right. Pt is a 2-3 assist to commode or bedpan. Patient has refused pain medication, stating she doesnt have pain. CSM's intact. Dressing C/D/I. Pt forgetful.
[2016-11-25 05:50] LABS: HEMATOCRIT 29.1 % (30.0-46.0); HEMOGLOBIN 9.3 g/dL (10.0-15.0)
[2016-11-25 06:03] LABS: ANION GAP 10.5 (10.0-19.0); CALCIUM 8.5 mg/dL (8.5-10.5); CREATININE 1.3 mg/dL (0.5-1.1)
[2016-11-25 06:05] LABS: POTASSIUM 3.5 mMol/L (3.7-5.1)
--- NOTE | 2016-11-25 11:00 | NUR ---
Spoke to patient about the need to go to [facility] once dismissed from here. She agreed to the plan to go there on Tuesday. At this time Arelis from [facility] came to visit. We all three talked about the plan for SNF. 1110 Left a message for Malu at [facility] to make sure patient can return on Tuesday? 1130 Malu called back and said yes. Called Bill at [facility] for van time - 1230 on November 29. Called daughter, informed charge nurse Radha. Packet started, orders on the chart. Note on chart about discharge plans if medically stable.
--- NOTE | 2016-11-25 16:39 | NUR ---
Significant Event: Pivot transfers with two assist and walker. NWB to R) foot. Needs contant reminders to keep foot off the floor. Denies pain, refuses offers of Tylenol this shift. Hx of dementia, forgetful. Dressing C/D/I. Follow up:
--- NOTE | 2016-11-26 03:40 | NUR ---
Significant Event:Pleasant & cooperative. 1 tab Percocet @ 6766 for c/o right foot pain & c/o restless leg syndrome "they just won't settle down tonight." Ate 75% of her supper. Denies any c/o numbness or tingling to right foot. Able to wiggle right toes. Repositioned with 1 assist & also repositions herself. Is strict NWB R) leg/foot. 380 po & 2 voids.
[2016-11-26 05:44] LABS: ANION GAP 9.2 (10.0-19.0); CALCIUM 8.2 mg/dL (8.5-10.5); CREATININE 1.1 mg/dL (0.5-1.1); POTASSIUM 3.2 mMol/L (3.7-5.1)
--- NOTE | 2016-11-26 11:10 | NUR ---
Per request talked to Julio, patient's significant other regarding discharge plans. He feels like [facility] would provide better care then SNF. I explained the differences and that everyone agreed patient needed to be in the place that gave the most supervision which is a SNF. We talked for about 10 minutes. Patient agrees with going to [facility]'s Tuesday.
--- NOTE | 2016-11-26 12:11 | NUR ---
A-SCREENED D/T LOS; S/P I&D OF R)FOOT PLAN TO GO BACK TO [facility] ON 11/29, PER CHART REVIEW HT: 60 IN. WT: 68.1 KG. BMI: 29.3 LABS: NA 143, K+ 3.2, GLU 80, BUN 22, GANTRY CRANE OPERATOR 1.1, ALB 2.7, PREALB 17.0, CRP 1.45 MEDS: LEVAQUIN, XARELTO, PERCOCET, MORPHINE, REGLAN, PRN BOWEL MEDS, LASIX, ZOFRAN DIET RX: REGULAR. SEVEN MEALS RECORDED SINCE ADMIT; 0-75% PO INTAKE; AVG IS 52%. EST NUTR NEEDS: [id number] KCALS (20-25 KCALS/KG) 68-89 GM PROTEIN (1.0-1.3 GM/KG) 1 ML FLUID/KCAL D-AT NUTRITION RISK W/INCREASED NUTRIENT NEEDS R/T ALTERED SKIN INTEGRITY AEB I&D OF R)FOOT. I-START ENSURE ENLIVE BID TO PROVIDE ADDITIONAL NUTRIENTS M/E-GOAL: PO INTAKE >/=75% PRIOR TO DISCHARGE 1)F/U PO INTAKE, SUPPLEMENT, SKIN, AND POC IN 4-6 DAYS 2)ASSIST NEEDED
--- NOTE | 2016-11-26 16:28 | NUR ---
Significant Event: PT ALERT BUT FORGETFUL AT TIMES. UP IN THE RECLINER WITH 1 ASSIST. NON WEIGHT BEARING TO RT FOOT. PT HAS A HARD TIME WITH THAT. VOIDED PER COMMODE. MOD BM TODAY. DENIES NEED FOR PAIN MEDS. TAKES PERCOCET WHEN NEEDED. DRESSING TO RT FOOT CHANGED BY MACIEL ESPINO TODAY. [facility] ON TUESDAY AT 1230. PT ISN'T VERY HAPPY ABOUT GOING THERE. FRIEND IN [facility] SEE HER THIS MORNING. Follow up:
--- NOTE | 2016-11-27 04:21 | NUR ---
Pt has hx of dementia. Strict NWB to R) leg. Pt has difficulty ambulating. 2-3 assist as one has to hold right leg off ground as she tries to bear weight on it. Pt has refused pain medication.
[2016-11-27 05:35] LABS: ANION GAP 11.7 (10.0-19.0); CALCIUM 8.5 mg/dL (8.5-10.5); CREATININE 1.2 mg/dL (0.5-1.1); POTASSIUM 3.7 mMol/L (3.7-5.1)
--- NOTE | 2016-11-27 17:18 | NUR ---
Significant Event: patient alert and oriented x3, forgetful. dressing to r) foot c/d/i, elevated on pillow. denied pain when asked. l) foot pump in place. up to BSC and chair with 2 assist, strict NWB to r) foot. family at bedside, throughout shift. pleasant and cooperative with cares. Follow up:
--- NOTE | 2016-11-28 04:21 | NUR ---
Pt has hx of dementia. 2 assist, Strict NWB to right foot. Pt needs reminded to not bear weight. VSS. One BM this shift. Plan is to go to [facility] on Tuesday.
[2016-11-28 05:30] LABS: EOSINOPHIL # 0.1 K/uL (0.0-0.5); EOSINOPHIL % 2.6 %; HEMOGLOBIN 9.3 g/dL (10.0-15.0); IMMATURE GRANULOCYTE % 0.5 %; LYMPHOCYTE % 26.4 %; MCH 31.6 pg (27.0-34.0); MCHC 32.1 gm/dL (32.0-36.5); MCV 98.6 fl (83.0-98.0); MONOCYTE # 0.4 K/uL (0.0-1.0); MONOCYTE % 9.3 %; MPV 11.3 fl (9.4-12.4); NEUTROPHIL # (ANC) 2.3 K/uL (1.8-7.8); NEUTROPHIL % 60.2 %; NRBC % 0 /100WBC (0-0.00); RBC 2.94 M/uL (3.00-5.00); RDW-CV 14.5 % (11.9-14.6); WBC 3.9 K/uL (4.0-11.0)
[2016-11-28 05:31] LABS: PLATELET COUNT 216 K/uL (150-450)
--- NOTE | 2016-11-28 17:37 | NUR ---
Pt has been alert and oriented this shift. No confusion noted. Saline lock removed Rt wrist. She is 2 assist trasnfer with strict NWB Rt LE. Does well with reminders. Mostly pivot trasfer and does scooch with Left leg. Tez dressing dry and intact. Denies pain all shift. Up to BSC, recliner and bed and now back up in chair. Spouse and other visitors here today. Pt had medium formed BM. Pt uses O2 2 liters at noc. VS stable. BP meds held due to parameters. Pt to go to [facility] tomorrow. She would like shower prior to discharge. Refused bath today.
--- NOTE | 2016-11-29 04:01 | NUR ---
Pt up w/ 2 assist GBW, strict NWB to R) LE. Pt needs reminded not to use right foot. Pt took tylenol at bedtime, refused pain medication after that. One BM. 2L O2 at bedtime. Plan is to go to [facility] at 1230 today. Dressing C/D/I. CSM's intact.
--- NOTE | 2016-11-29 09:33 | NUR ---
Significant Event: Patient had I&D of R) foot on . Dressing was changed this morning by Tiffany Reagan wrap dressing is C/D/I. Patient is to be NWB to R) foot. 2 assist with walker. 2L/O2 at night. VSS. WNL. Had BM 11/20/16. No problems voiding. Has been taking Tylenol for pain. Follow up:
--- NOTE | 2016-11-29 11:45 | NUR ---
Faxed orders to [facility]. 1320 Charge Nurse Janay notified me [facility] has not been here yet. Called [facility], will be here shortly. 1330 daughter spoke to me, needs to run errands but wants to be here when [facility] comes. Called [facility], will be here soon. Daughter will stay and wait.
--- NOTE | 2016-11-29 14:11 | NUR ---
Patient was transferred to [facility] at 1345. AOx3. VSS. CSM WNL. Up with 2 assist with walker. NWB to R) leg.
== END 2016-11-29 14:32 | DRG 901 ==
LOC: GMED 03:42 → G3N 06:43
PROVIDERS: Family Medicine; Nurse Practitioner Family; Physician Assistant; ADMIT Family Medicine
PROC: 0QBL0ZZ Excision of Right Tarsal, Open Approach (ICD-10-PCS; principal; 2016-11-22)
PROC: 0JBQ0ZZ Excision of Right Foot Subcutaneous Tissue and Fascia, Open Approach (ICD-10-PCS; principal; 2016-11-22)
DX: T81.30XA Disruption of wound, unspecified, initial encounter (principal); G93.40 Encephalopathy, unspecified; I27.81 Cor pulmonale (chronic); I48.0 Paroxysmal atrial fibrillation; D63.8 Anemia in other chronic diseases classified elsewhere; E03.9 Hypothyroidism, unspecified; G47.33 Obstructive sleep apnea (adult) (pediatric); I12.9 Hypertensive chronic kidney disease with stage 1 through stage 4 chronic kidney disease, or unspecified chronic kidney disease; I25.10 Atherosclerotic heart disease of native coronary artery without angina pectoris; M15.9 Polyosteoarthritis, unspecified; N18.3 Chronic kidney disease, stage 3 (moderate)
CPT/HCPCS: G0480; J1956; J2001; J7030; J7050

== ENCOUNTER → 2016-11-21 | Outpatient (CLI) | payer MEDICARE, BC | END | disposition disaster alternative care site (69) | LOC: GAMB 03:28 | DX: L76.22 Postprocedural hemorrhage of skin and subcutaneous tissue following other procedure (principal); I10 Essential (primary) hypertension; E03.9 Hypothyroidism, unspecified; Z79.899 Other long term (current) drug therapy; Z86.59 Personal history of other mental and behavioral disorders | CPT/HCPCS: A0425; A0428 ==

== ENCOUNTER → 2016-12-02 | Outpatient (CLI) | payer MEDICARE, BC ==
[~2016-12-02] MED LIST changes: +DULCOLAX10 MG R; +LEVAQUIN 250 M250 MG PO
[2016-12-02 13:00] LABS: CALCIUM 8.3 mg/dL (8.5-10.5); CREATININE 1.4 mg/dL (0.5-1.1)
== END ==
PROVIDERS: Internal Medicine
DX: E03.9 Hypothyroidism, unspecified (principal); L03.115 Cellulitis of right lower limb

== ENCOUNTER → 2016-12-14 | Outpatient (CLI) | payer OTHER, MEDICARE, BC | DX: E03.9 Hypothyroidism, unspecified (principal) ==